=== PATIENT | female | born 1945 | race Caucasian/White ===

== ENCOUNTER 2020-04-20 21:30 | Inpatient (IN) | payer MEDICARE, BC ==
[~2020-04-20 21:30] MED LIST: Dexamethasone 20 MG/5 ML VIAL ONE; Glycopyrrolate 0.2 MG/ML 5 ML SYRINGE ONE; Heparin 10,000 UNITS/ 10 ML VIAL ONE; Iopamidol 370 76% 100 ML VIAL ONE; Ondansetron PF 4 MG/2 ML Vial ONE; PHENYLEPHRINE-NS 100 MCG/ML 10 ML SYRINGE ONE; PROPOFOL 200 MG/20 ML VIAL ONE; Rocuronium Bromide 10 MG/ML (10ML VIAL) ONE; Succinylcholine 200 MG/10 ml SYRINGE FS ONE
[2020-04-20] MEDS ORDERED: Midazolam HCl 2 mg/2 ml Vial ONE (21:54)
[2020-04-20] MEDS ORDERED: SUGAMMADEX SODIUM 200 MG/2 ML VIAL ONE (23:06)
[2020-04-21] MEDS: [UNRECOGNIZED DRUG - REMARK] FS SCH (01:45)
--- NOTE | 2020-04-21 02:26 | PRG ---
DATE OF SERVICE: 04/20/2020 Ms. Cortés is a 74-year-old female, who developed abrupt onset right hemiplegia and aphasia at dinner. She was brought to the [facility] ER, where she underwent a noncontrast head CT, which was negative for hemorrhage. A CT angiogram revealed occlusion of the distal ICA as well as the left middle cerebral arteries. She was administered IV tPA and transferred to [facility] for mechanical thrombectomy. Upon arrival, she was brought to the [facility], where she was placed under general anesthesia and underwent mechanical thrombectomy with buddhism of blood flow into the middle cerebral artery territory. The plan will now be ICU admission with additional medical management. Neurology and Hospitalist Service have been consulted. Job ID: [id number]
[2020-04-21 03:02] VITALS: BMI 27.1
--- NOTE | 2020-04-21 03:27 | PDOC.HHP ---
Hospitalist HPI Left-sided weakness History of Present Illness: This is a 74-year-old female with a history of atrial fibrillation hypertension, hyperlipidemia who is admitted on account of the stroke. She developed abrupt onset right hemiplegia and aphasia at home during the and thus EMS was activated. She was sent to [place] [facility] and evaluated. Initial CT of the head revealed no hemorrhage and a CTA was concerning for occlusion of the distal ICA and left middle cerebral arteries. TPA was initiated and after which she was transferred here for thrombectomy. Post thrombectomy she was transferred to CCU for monitoring. Hospitalist team was consulted for admission. Labs at presentation with WBC 6.7, Hb 10.5 and platelets 157. Potassium was low at 3.4, AST 76 ALT 117. Triglycerides were elevated at 571, cholesterol 212. Post thrombectomy patient was back to baseline at the time of my assessment in the ICU. She however does not remember clearly the events ofd Allergies/Adverse Reactions: Allergy/AdvReac Type Severity Reaction Status Date / Time No Known Allergies Allergy Unverified 04/21/20 00:44 Past History: Past medical history: A. fib, hypertension, hyperlipidemia Past surgical history: Appendectomy Family history: None of significance Social history: Occasional alcohol, no history of smoking or illicit drug use. History family Hospitalist HPI ROS Constitutional: reports: weakness. denies: fever, chills, sweats Eyes: denies: pain, vision change, conjunctivae inflammation, eyelid inflammation Cardiovascular: denies: chest pain, palpitations, orthopnea, paroxysmal noc. dyspnea Genitourinary: denies: dysuria, frequency, incontinence, hematuria Musculoskeletal: denies: neck pain, shoulder pain, arm pain Neurological: reports: change in speech. denies: weakness, numbness, incoordination Hospitalist Exam Vitals: Weight Weight 158 lb Most Recent Monitor Data Heart Rate from ECG 118 NIBP 141/117 NIBP BP-Mean 125 Respiration from ECG 24 SpO2 95 General Appearance: awake alert General - other findings: In no acute distress Eye: PERRL, anicteric sclera ENT: normocephalic atraumatic Neck: supple, symmetric, no JVD Heart: RRR, no murmur, no gallops, no rubs Respiratory: CTAB, no wheezes, no rales, no ronchi Gastrointestinal: soft, non-distended, tender to palpation (In right iliac fossa however resolved after micturition) Extremities: no cyanosis, no clubbing, no edema Neurological: cranial nerve grossly intact, no weakness, no focal deficits Psychiatric: normal affect, normal behavior, A&O x 3 Hospitalist H&P A/P Plan: This is a 74-year-old female with a history of A. fib, hypertension and hyperlipidemia who presents post thrombectomy after a left-sided ICA and MCA stroke. Stroke ICA and MCA she is status post thrombectomyno neurological deficits Had TPA We will monitor in ICU. PT evaluation in a.m. Echocardiogram Neurology consult Neurosurgery following. Normocytic anemia Hemoglobin at 10.5 Stable We will monitor Hypokalemia Potassium 3.4 Replace Check magnesium Hypertension BP stable Monitor Resume home medications once verified A. fib Patient goes into RVR at 120s We will try 5 mg IV metoprolol Cardiology evaluation the morning Monitor VT prophylaxisnone until post TPA
--- NOTE | 2020-04-21 03:54 | OP ---
DATE OF PROCEDURE: 04/20/2020 ENVIRONMENTAL ADVISOR: No shop assistant. INDICATION: Large vessel occlusion of distal ICA and the left middle cerebral artery. PROCEDURE PERFORMED: Mechanical thrombectomy. ANESTHESIA: General. DESCRIPTION OF PROCEDURE: The patient was brought into the operating room and placed under general anesthesia. She was placed on the superintendent geophysical laboratory table in a supine position. Both groins were prepped and draped in the usual sterile fashion. A 5-Kyrgyz micropuncture set was used to gain access to the right common femoral artery. Using a Seldinger technique, the needle was removed and an 8-Kyrgyz sheath was placed. An 8-Kyrgyz Concentric guide catheter was passed over a long Club Venit diagnostic catheter, which was passed over a Surphace guidewire and advanced into the left internal carotid artery, where an AP and lateral angiogram was performed. After confirming occlusion of the left middle cerebral artery and distal internal carotid artery, Trevo mechanical thrombectomy device was deployed for a total of three times. There was complete roman catholic of blood flow with starting TC store 0 and an ending TC score of 3. All catheters were then removed. The sheath was sewn in place due to recent administration of tPA. The procedure came to an end without any known complication. IMPRESSION: The patient underwent successful mechanical thrombectomy with complete roman catholic of blood flow into the left middle cerebral artery and distal left internal carotid artery. Job ID: [id number]
[2020-04-21] MEDS ORDERED: Metoprolol Tartrate 5 MG/5 ML VIAL IVP SCH (05:45)
--- NOTE | 2020-04-21 08:51 | RAD ---
EXAM: XR Abdomen 1 View/KUB PROVIDED CLINICAL HISTORY: Abdominal distention post TPA COMPARISON: None FINDINGS: There is prominent distention of the urinary bladder which is filled with contrast likely due to rece nt contrasted exam. Surgical clips overlie the right lower quadrant/upper pelvis. Vascular calcifications are seen in the abdominal aorta and iliac arteries. Bowel gas pattern is nonspecific. Osseous structures have a normal appearance. IMPRESSION: 1. Prominent distention of the urinary bladder which is filled with contrast. 2. Nonspecific bowel gas pattern.
--- NOTE | 2020-04-21 09:12 | PDOC.HOSPP ---
- Subjective Encounter Date: 04/21/20 Encounter Time: 09:11 Subjective: Ms. Cortés was seen today in follow-up of CVA post tPa, and mechanical thrombectomy. She says she feels fine. She does not remember much of the events which led to her hospitalization other than she was standing in a chair on her porch, and fell. - Objective Vital Signs & Weight: Vital Signs (12 hours) Pulse Ox 04/21/20 07:56 93 L 04/21/20 07:08 96 04/21/20 05:16 96 Weight Weight 158 lb Most Recent Monitor Data Heart Rate from ECG 113 NIBP 133/62 NIBP BP-Mean 85 Respiration from ECG 23 SpO2 93 I&O: 04/20/20 04/21/20 04/22/20 06:59 06:59 06:59 Intake Total 0 Output Total 1380 0 Balance -1380 0 Hospitalist ROS - Medication Medications: Active Medications Generic Name Dose Route Start Last Admin Trade Name Freq PRN Reason Stop Dose Admin Miscellaneous Information 1 each 04/21/20 01:45 04/21/20 01:45 No Anticoags FS 04/22/20 22:00 1 each NOW [facility] Administration Hospitalist Exam Vitals: Vital Signs (12 hours) Pulse Ox 04/21/20 07:56 93 L 04/21/20 07:08 96 04/21/20 05:16 96 Weight Weight 158 lb Most Recent Monitor Data Heart Rate from ECG 113 NIBP 133/62 NIBP BP-Mean 85 Respiration from ECG 23 SpO2 93 General Appearance: NAD, awake alert Eye: PERRL, anicteric sclera Heart: no murmur, no gallops, irregular (and rapid) Respiratory: CTAB, no wheezes, no rales, no ronchi, normal chest expansion, no tachypnea, normal percussion Gastrointestinal: soft, non-tender, non-distended, normal bowel sounds, no palpable masses, no hepatomegaly Extremities: no cyanosis, no edema Neurological: no focal deficits Musculoskeletal: no muscle wasting Psychiatric: normal affect, A&O x 3 Hosp A/P (1) Acute CVA (cerebrovascular accident) Code(s): I63.9 - CEREBRAL INFARCTION, UNSPECIFIED Status: Acute (2) Atrial fibrillation Code(s): I48.91 - UNSPECIFIED ATRIAL FIBRILLATION Status: Chronic (3) Hypertension Code(s): I10 - ESSENTIAL (PRIMARY) HYPERTENSION Status: Chronic - Plan * Acute Left MCA CVA. She is s/p tPa, as well as mechanical thrombectomy. She currently has no obvious residual symptoms. * Continue to monitor in the ICU under the post tPa protocol * AFIB- she has had ablation in the past, was not on anticoagulation, other than aspirin. Her heart rate is fast- will try a dose of Digoxin IV, and await further recommendations from Cardiology * Consult Cardiology * Echo is being done * Neurology Evaluation * HTN- blood pressure is currently controlled
[2020-04-21] MEDS ORDERED: Digoxin 0.5 MG/2 ML AMP SLOW IVP SCH (09:30)
[2020-04-21] MEDS ORDERED: Potassium Chloride 20 MEQ in Premix Bag 1 BAG IVPB SCH (10:00)
[2020-04-21] MEDS: Diltiazem 125 MG in Sodium Chloride 0.9% 100 ML IVPB SCH (12:33)
--- NOTE | 2020-04-21 13:04 | CON ---
DATE OF CONSULTATION: 04/21/2020 REASON FOR CONSULTATION: AFib with RVR. PRIMARY MOLD BUNCH TRIMMER: Wilberto Yanes MD HISTORY OF PRESENT ILLNESS: Ms. Cortés is a very pleasant 74-year-old white female, who came to the hospital for stroke-like symptoms. She received tPA and there was no resolution of symptoms, so she was taken emergently to the catheterization lab by Dr. Duong, who found an occluded internal carotid and middle cerebral artery. He did manual thrombectomy of these vessels, successfully clearing them and restoring flow. On my evaluation, Ms. Cortés is completely neurologically intact and back to normal, which is impressive how well she is doing right now. Cardiology has been consulted as she has been in AFib, currently in AFib with RVR, heart rate in the 110s to 130s. She has a history of atrial fibrillation. She had an ablation back in 2019. She was on anticoagulation briefly and then since she has had her ablation, she has not been on any anticoagulation. She established with our practice with Dr. Yanes just about a month or 2 ago, and she was scheduled to get evaluation of her lower extremities for symptomatic peripheral vascular disease. This does not happen as the patient developed COVID back in February and her procedure had to be postponed. PAST MEDICAL HISTORY: 1. Hyperlipidemia. 2. Hypertension. 3. History of hepatitis. 4. Peripheral vascular disease with stenting in the past. 5. History of paroxysmal atrial fibrillation, status post ablation in 2019. 6. Anxiety and depression. 7. Osteoarthritis. OUTPATIENT MEDICATIONS: 1. Atenolol/chlorthalidone 50/25 mg half a tablet every day. 2. Carbinoxamine maleate 4 mg daily. 3. Aspirin 81 a day. 4. Tolterodine daily. 5. Calcium with vitamin D. 6. Losartan 100 mg a day. 7. Pravastatin 80 mg a day. 8. Sertraline 50 mg at bedtime. ALLERGIES: PENICILLIN GIVES RASH. PAST SURGICAL HISTORY: 1. Tubal ligation. 2. Bladder tack. 3. Stenting on bilateral lower extremities. 4. AFib ablation in 2019. 5. Bilateral cataract surgeries. FAMILY HISTORY: Noncontributory. SOCIAL HISTORY: Social alcohol use. No tobacco or drugs. She moved from the [facility] to this area since November of this year. REVIEW OF SYSTEMS: A 12-point review of systems was done and was found to be negative other than stated in the history of present illness. PHYSICAL EXAMINATION: VITAL SIGNS: Temperature 97.2, pulse 122, respiratory rate 20, saturating 97% on 2 L nasal cannula, blood pressure 144/74. GENERAL: Awake, alert, oriented x3. In no distress. HEENT: Normocephalic, atraumatic. NECK: Supple. LUNGS: Clear. CARDIOVASCULAR: Irregularly irregular. Heart rate in the 120s. ABDOMEN: Soft. Positive bowel sounds. EXTREMITIES: No edema. SKIN: Warm and dry. LABORATORY DATA: Laboratory work was reviewed. White count of 6, hemoglobin of 10, hematocrit 31, platelet count of 172. Coags with INR 1.1. Chemistries were unremarkable except for potassium is 3.4, AST 76, ALT 112. COVID-19 PCR serologies were not detected. EKG was reviewed. Telemetry was reviewed. ASSESSMENT AND PLAN: 1. Atrial fibrillation with RVR. 2. Acute CVA. 3. Status post tPA yesterday at midnight. 4. Status post manual thrombectomy of the left middle cerebral artery and left internal carotid artery. 5. History of hypertension. 6. History of peripheral vascular disease. PLAN: 1. We will try to rate control her at this time. We will try to stay away from amiodarone unless we absolutely need to for rate control, but my concern is that at this time without doing a BENEDICTO, I do not know if there is still thrombus in the left atrium that could continue to dislodge converted either chemically or electrically. We will try to do rate control. She already got digoxin and this did not really do much for her heart rate. We spoke with Dr. Duong, and as far as how high would he prefer to have her blood pressure with permissive hypertension after strokes, he tells me that since she has been revascularized that as long as we do not have low blood pressures, we should be okay. With her blood pressure currently in the 140s, we are going to start her on diltiazem drip to try to slow her down lenient rate control less than 110. 2. We will hold any diltiazem or any blood pressure medications if her blood pressure gets anywhere below 100. 3. She will need long-term anticoagulation. She received tPA less than 24 hours ago, so that should be started tomorrow morning. 4. Her peripheral vascular disease will be addressed in the future once she is over the current situation. Thank you for letting us to participate in care of your patient. Dr. Yanes, her primary icing maker, will follow up in the morning. Job ID: [id number]
--- NOTE | 2020-04-21 13:34 | CON ---
NEUROLOGY CONSULTATION DATE OF CONSULTATION: 04/21/2020 REASON FOR CONSULTATION: Right sided weakness and aphasia Acute CVA status post tPA and status post mechanical thrombectomy. HISTORY OF PRESENT ILLNESS: Ms. Yael Cortés is a 74-year-old female with medical history significant for atrial fibrillation, hypertension, and hyperlipidemia, presented to the emergency room because of acute onset left-sided weakness with the abrupt onset of right-sided hemiplegia and aphasia at home. The family called the EMS and she was sent to the [place] ER where she was evaluated with head CT, which did not reveal any hemorrhage. CTA of the head showed occlusion of the distal ICA and the left middle cerebral artery. TPA was initiated, after which she was transferred here for mechanical thrombectomy. Post thrombectomy, she was admitted to the CCU for monitoring and management. Neurology was consulted for continued management. The patient denies nausea, vomiting, headache, chest pain, abdominal pain, recent illness, or recent exposure to COVID-19. She also denies vertigo, dizziness, double vision, or loss of vision, but she does not remember the events after a stroke, so there is a memory lapse associated with the situation. ALLERGIES: NO KNOWN DRUG ALLERGIES. PAST MEDICAL HISTORY: 1. Atrial fibrillation. 2. Hypertension. 3. Hyperlipidemia. PAST SURGICAL HISTORY: Appendectomy. FAMILY HISTORY: None. SOCIAL HISTORY: Occasional alcohol. Denies illegal drug use. REVIEW OF SYSTEMS: All systems reviewed and were negative except the pertinent positives and negatives mentioned in the HPI. Vital Signs & Weight: Vital Signs (12 hours) Pulse Ox 04/21/20 07:56 93 L 04/21/20 07:08 96 04/21/20 05:16 96 Weight Weight 158 lb Most Recent Monitor Data Heart Rate from ECG 113 NIBP 133/62 NIBP BP-Mean 85 Respiration from ECG 23 SpO2 93 I&O: 04/20/20 04/21/20 04/22/20 06:59 06:59 06:59 Intake Total 0 Output Total 1380 0 Balance -1380 0 Active Medications Generic Name Dose Route Start Last Admin Trade Name Freq PRN Reason Stop Dose Admin Miscellaneous Information 1 each 04/21/20 01:45 04/21/20 01:45 No Anticoags FS 04/22/20 22:00 1 each NOW [facility] Administration PHYSICAL EXAMINATION: General Appearance: NAD, awake alert Eye: PERRL, anicteric sclera Heart: no murmur, no gallops, irregular (and rapid) Respiratory: CTAB, no wheezes, no rales, no ronchi, normal chest expansion, no tachypnea, normal percussion Gastrointestinal: soft, non-tender, non-distended, normal bowel sounds, no palpable masses, no hepatomegaly Extremities: no cyanosis, no edema Neurological: Mental status; the patient is alert and oriented to person, place, and time. Recent and remote memory intact. Fund of knowledge appropriate. Speech is clear. Cranial nerves 2 through 12 intact. Motor; muscle tone and bulk are normal. Strength 5/5 bilaterally. Sensory intact. Cerebellar, finger-nose testing intact. Gait deferred due to patient's safety reasons. DATA REVIEWED: I reviewed the labs which is unremarkable. Head CT did not reveal acute intracranial pathology. CTA of the head showed left ICA and left middle cerebral artery occlusion. ASSESSMENT AND PLAN: (1) Acute CVA (cerebrovascular accident) Code(s): I63.9 - CEREBRAL INFARCTION, UNSPECIFIED Status: Acute (2) Atrial fibrillation Code(s): I48.91 - UNSPECIFIED ATRIAL FIBRILLATION Status: Chronic (3) Hypertension Code(s): I10 - ESSENTIAL (PRIMARY) HYPERTENSION Status: Chronic Ms. Yael Cortés is a 74-year-old female with medical history significant for atrial fibrillation, hypertension, and hyperlipidemia, presented with acute onset focal deficit in the setting of hypertensive emergency. She does have history of hypertension, hyperlipidemia, and atrial fibrillation. Head CT reviewed, which was negative for acute intracranial pathology. CTA of the head showed ICA and middle cerebral artery occlusion. She is status post tPA and status post mechanical thrombectomy and has been doing well. Her focal neurological deficits have been resolved. Continue permissive control of blood pressure and strict control of blood glucose. Continue telemetry to monitor arrhythmia. She does have history of atrial fibrillation. Consider Cardiology input. 2D echo to evaluate for left ventricular ejection fraction. The patient is status post mechanical thrombectomy and Neurosurgery is on board. Continue n.p.o. until cleared by Speech. DVT prophylaxis with SCDs. Continue medical management per primary team. Hold antiplatelets and anticoagulation for the next 24 hours since the patient received tPA and need head CT 24 hours post tPA to monitor for bleed. PT/OT/Speech. We will continue to follow. Plan discussed in detail with the patient with the patient and the family member and also the nursing staff. Thank you for the consult. Job ID: [id number] MTDD
--- NOTE | 2020-04-21 13:59 | PDOC.EEG ---
Neurology EEG Report - Report Report: This EEG was performed using 24 channel [employer] video EEG machine with 24 disc sergei ctrodes. This was an extended 2 hours 4 minutes of inpatient video EEG recording. Digital analysis of the EEG was done for spike and seizure detection which revealed no abnormalities. Background: The posterior background rhythm is 8 to 9 Hz. Minimal reactivity seen with eye opening and closure Hyperventilation: Not performed. Photic Stimulation: No significant response. Sleep: No stage change is observed. EEG Diagnosis: Occasional irregular theta activity seen during the recording Clinical Interpretation: This EEG is consistent with mild generalized nonspecific cerebral dysfunction. No electrographic seizures captured during the recording.
[2020-04-22] MEDS: [UNRECOGNIZED DRUG - REMARK] FS SCH (02:00)
[2020-04-22 04:01] LABS: #Lymphocytes 2.7 thou/uL (1.20-3.40); #Monocytes 0.6 thou/uL (0.11-0.59); %Basophils 0.4 % (0.0-1.0); %Eosinophils 0.1 % (0.0-10.0); %Lymphocytes 28.9 % (21.0-51.0); %Monocytes 5.9 % (0.0-10.0); %Neutrophils 64.7 % (42.0-75.0); Hemoglobin 10.9 g/dL (12.0-16.0); Mean Corpuscular HGB CONC 32.5 g/dL (32.0-36.0); Mean Corpuscular Hemoglobin 30.5 pg (27.0-31.0); Mean Corpuscular Volume 93.8 fL (78.0-98.0); Mean Platelet Volume 6.5 fL (7.4-10.4); Platelet Count 185 thou/uL (130-400); RBC Distribution Width 13.1 % (11.5-14.5); Red Blood Cell (RBC) Count 3.59 mill/uL (4.20-5.40); White Blood Cell (WBC) Count 9.3 thou/uL (4.8-10.8)
[2020-04-22 04:08] LABS: Hemoglobin A1c 5.7 % (4.0-6.0)
[2020-04-22 04:21] LABS: Anion Gap 12 mmol/L (10-20); BUN (Urea Nitrogen) 14 mg/dL (9.8-20.1); Calc. Creatinine Clearance 83 mL/min (70-130); Calcium 8.2 mg/dL (7.8-10.44); Carbon Dioxide 21 mmol/L (23-31); Cardiac Risk 5.3 (Less than 4.5); Chloride 110 mmol/L (98-107); Cholesterol 159 mg/dl (< 200 Desired); Glucose 113 mg/dL (83-110); HDL Cholesterol 30 mg/dL (>60 Neg Risk); LDL Cholesterol, Calculated 97 mg/dL; Magnesium 1.6 mg/dL (1.6-2.6); Potassium 3.4 mmol/L (3.5-5.1); Sodium 140 mmol/L (136-145); Triglycerides 162 mg/dL (Less than 150)
[2020-04-22] MEDS: Diltiazem 125 MG in Sodium Chloride 0.9% 100 ML IVPB SCH (07:23)
--- NOTE | 2020-04-22 07:41 | CT ---
PRELIMINARY REPORT/[facility]/EMERGENCY AFTER HOURS PROCEDURE EXAM: CT Head Without Intravenous Contrast. CLINICAL HISTORY: F/U TPA/EMBOLECTOMY TECHNIQUE: Axial computed tomography images of the head/brain without intravenous contrast. COMPARISON: CT\SR - CT BRAIN WO CON - 04/20/2020 08:02 PM ADVISORY SOFTWARE ENGINEER FINDINGS: BRAIN: No acute intraparenchymal hemorrhage. No mass lesion. No CT evidence for acute territorial infarct. N o midline shift or extra-axial collection. Hypodensity of the white matter is nonspecific but likely represents chronic microvascular ischemic d isease. VENTRICLES: No hydrocephalus. Volume loss. ORBITS: The globes are intact. SINUSES AND MASTOIDS: The paranasal sinuses and mastoid air cells are clear. SOFT TISSUES: No significant facial or scalp soft tissue swelling evident. No radiopaque foreign body is seen. BONES: No acute skull fracture. IMPRESSION: Chronic parenchymal changes. No acute intracranial abnormality. ELECTRONICALLY SIGNED BY: Merle Lynn MD Apr 22, 2020 5:05:07 AM ADVISORY SOFTWARE ENGINEER This report is intended for review by the ordering physician only, in accordance of law. If you recei ve this report in error, please call [facility] at [phone]. FINAL REPORT Final interpretation Head CT without contrast: 04/22/2020 COMPARISON: 04/20/2020. HISTORY: Ischemic CVA, reevaluate brain parenchyma. FINDINGS: The imaged paranasal sinuses and mastoid air cells are well-aerated. There is no displaced calvarial fracture. No intracranial hemorrhage, midline shift, mass effect, or ventricular enlargement. Mild diffuse cerebral volume loss. IMPRESSION: No intracranial hemorrhage. Code QA Transcribed Date/Time: 04/22/2020 7:46 AM
[2020-04-22] MEDS ORDERED: Potassium Chloride 20 MEQ TAB PO SCH (07:45)
[2020-04-22] MEDS ORDERED: Diltiazem 125 MG in Sodium Chloride 0.9% 100 ML IVPB SCH (08:47)
[2020-04-22] MEDS ORDERED: Atenolol 25 MG TAB PO SCH (09:00)
[2020-04-22] MEDS: Ezetimibe 10 MG TAB PO SCH (11:23)
--- NOTE | 2020-04-22 13:07 | PDOC.NEUPN ---
- Subjective Encounter Date: 04/22/20 Subjective: No new complaints. - Objective Vital Signs & Weight: Vital Signs (12 hours) Temp Pulse Pulse Pulse BP BP BP 04/22/20 11:22 81 127/54 L 04/22/20 09:45 76 80 129/59 L 131/74 04/22/20 08:37 04/22/20 08:00 04/22/20 07:00 98.1 F Pulse Ox Pulse Ox Pulse Ox 04/22/20 11:22 04/22/20 09:45 94 L 95 04/22/20 08:37 97 04/22/20 08:00 92 L 04/22/20 07:00 Weight Weight 158 lb Most Recent Monitor Data Heart Rate from ECG 68 NIBP 111/58 NIBP BP-Mean 75 Respiration from ECG 17 SpO2 93 I&O: 04/21/20 04/22/20 04/23/20 06:59 06:59 06:59 Intake Total 324.2 540 Output Total 1380 1350 1200 Balance -1380 -1025.8 -660 Result Diagrams: 04/22/20 03:44 04/22/20 03:44 Radiology Reviewed by me: Yes EKG Reviewed by me: Yes ROS - Review of Systems Constitutional: denies: fever, chills, sweats, weakness, malaise, other Eyes: denies: pain, vision change, conjunctivae inflammation, eyelid inflammatio n, redness, other ENT: denies: ear pain, ear discharge, nose pain, nose discharge, nose congestion, mouth pain, mouth swelling, throat pain, throat swelling, other Respiratory: denies: cough, dry, shortness of breath, hemoptysis, SOB with excertion, pleuritic pain, sputum, wheezing, other Gastrointestinal: denies: nausea, vomiting, abdominal pain, diarrhea, constipation, melena, hematochezia, other Genitourinary: denies: dysuria, frequency, incontinence, hematuria, retention, other Musculoskeletal: denies: neck pain, shoulder pain, arm pain, back pain, hand pain, leg pain, foot pain, other Skin: denies: rash, lesions, alize, bruising, other Neurological: reports: weakness - Medication Medications: Active Medications Generic Name Dose Route Start Last Admin Trade Name Freq PRN Reason Stop Dose Admin Atenolol 25 mg 04/22/20 09:00 04/22/20 11:22 Atenolol 25 Mg Tab PO 25 mg DAILY ROQUE Administration Ezetimibe 10 mg 04/22/20 09:00 04/22/20 11:23 Ezetimibe 10 Mg Tab PO 10 mg DAILY ROQUE Administration Miscellaneous Information 1 each 04/21/20 01:45 04/22/20 02:00 No Anticoags FS 04/22/20 22:00 1 each NOW ROQUE Administration - Exam General Appearance: awake alert Eye: PERRL ENT: normocephalic atraumatic Neck: supple Respiratory: CTAB Cardiovascular: irregular Gastrointestinal: soft Extremities: no cyanosis Skin: normal turgor Neurological: no focal deficits, no new deficit Musculoskeletal: normal tone, no muscle wasting PSYCH: normal affect, normal behavior, A&O x 3, oriented to person, oriented to place, oriented to time Results - Labs Result Diagrams: 04/22/20 03:44 04/22/20 03:44 Lab results: WBC 9.3 thou/uL (4.8-10.8) 04/22/20 03:44 Hgb 10.9 g/dL (12.0-16.0) L 04/22/20 03:44 Hct 33.7 % (36.0-47.0) L 04/22/20 03:44 MCV 93.8 fL (78.0-98.0) 04/22/20 03:44 Plt Count 185 thou/uL (130-400) 04/22/20 03:44 Neutrophils % 64.7 % (42.0-75.0) 04/22/20 03:44 Sodium 140 mmol/L (136-145) 04/22/20 03:44 Potassium 3.4 mmol/L (3.5-5.1) L 04/22/20 03:44 Chloride 110 mmol/L (98-107) H 04/22/20 03:44 Carbon Dioxide 21 mmol/L (23-31) L 04/22/20 03:44 BUN 14 mg/dL (9.8-20.1) 04/22/20 03:44 Creatinine 0.67 mg/dL (0.6-1.1) 04/22/20 03:44 Glucose 113 mg/dL (83-110) H 03/01/21 03:44 Calcium 8.2 mg/dL (7.8-10.44) 04/22/20 03:44 - Radiology Interpretation CT scan - head Additional Comment: MRI of the brain was negative for acute intracranial pathology. PN A/P (1) Acute CVA (cerebrovascular accident) Code(s): I63.9 - CEREBRAL INFARCTION, UNSPECIFIED Status: Acute (2) Atrial fibrillation Code(s): I48.91 - UNSPECIFIED ATRIAL FIBRILLATION Status: Chronic (3) Hypertension Code(s): I10 - ESSENTIAL (PRIMARY) HYPERTENSION Status: Chronic - Plan Daily Plan: plan discussed w/ family, PT/OT, speech therapy, DVT proph w/SCDs Mr. Cortés is a 74-year-old female who presented with strokelike symptoms and is s/p TPA and mechanical thrombectomy with marked resolution of her neurological deficits. Head CT 24 hours post TPA is negative for bleed. CTA of the head showed occlusion of the left middle cerebral and distal internal carotid arteries. Mechanical thrombectomy was performed by Dr. Duong which resulted in normal blood flow 2 D Echo completed. Results noted. EEG reviewed and was negative for seizure activity. Start aspirin and high intensity statin for secondary stroke prevention. Permissive control of blood pressure at this time. Strict control of blood glucose. Check hemoglobin A1c, fasting lipid panel and TSH. Continue telemetry. Patient has history of atrial fibrillation and cardiology is on board.Need care home anticoagulation. Neurochecks every 4 hours. Continue home medications. Continue medical management per primary team and cardiology. PT/OT/speech DVT prophylaxis with SCDs. Plan discussed with the patient and the family.
--- NOTE | 2020-04-22 16:55 | PDOC.HOSPP ---
- Subjective Encounter Date: 04/22/20 Encounter Time: 16:52 Subjective: Ms. Cortés was seen today in follow-up of acute CVA s/p tPa. She says she does no have any complaints, and her symptoms have completely resolved. - Objective Vital Signs & Weight: Vital Signs (12 hours) Temp Pulse Pulse Pulse BP BP BP 04/22/20 11:22 81 127/54 L 04/22/20 09:45 76 80 129/59 L 131/74 04/22/20 08:37 04/22/20 08:00 04/22/20 07:00 98.1 F Pulse Ox Pulse Ox Pulse Ox 04/22/20 11:22 04/22/20 09:45 94 L 95 04/22/20 08:37 97 04/22/20 08:00 92 L 04/22/20 07:00 Weight Weight 158 lb Most Recent Monitor Data Heart Rate from ECG 79 NIBP 101/72 NIBP BP-Mean 81 Respiration from ECG 26 SpO2 96 I&O: 04/21/20 04/22/20 04/23/20 06:59 06:59 06:59 Intake Total 324.2 660 Output Total 1380 1350 1200 Balance -1380 -1025.8 -540 Result Diagrams: 04/22/20 03:44 04/22/20 03:44 Hospitalist ROS - Medication Medications: Active Medications Generic Name Dose Route Start Last Admin Trade Name Freq PRN Reason Stop Dose Admin Atenolol 25 mg 04/22/20 09:00 04/22/20 11:22 Atenolol 25 Mg Tab PO 25 mg DAILY ROQUE Administration Ezetimibe 10 mg 04/22/20 09:00 04/22/20 11:23 Ezetimibe 10 Mg Tab PO 10 mg DAILY [facility] Administration Miscellaneous Information 1 each 04/21/20 01:45 04/22/20 02:00 No Anticoags FS 04/22/20 22:00 1 each NOW [facility] Administration Hospitalist Exam Vitals: Vital Signs (12 hours) Temp Pulse Pulse Pulse BP BP BP 04/22/20 11:22 81 127/54 L 04/22/20 09:45 76 80 129/59 L 131/74 04/22/20 08:37 04/22/20 08:00 04/22/20 07:00 98.1 F Pulse Ox Pulse Ox Pulse Ox 04/22/20 11:22 04/22/20 09:45 94 L 95 04/22/20 08:37 97 04/22/20 08:00 92 L 04/22/20 07:00 Weight Weight 158 lb Most Recent Monitor Data Heart Rate from ECG 79 NIBP 101/72 NIBP BP-Mean 81 Respiration from ECG 26 SpO2 96 General Appearance: NAD, awake alert Eye: PERRL, anicteric sclera Heart: RRR, no murmur, no gallops, no rubs, normal peripheral pulses Respiratory: CTAB, no wheezes, no rales, no ronchi, normal chest expansion, no tachypnea, normal percussion Gastrointestinal: soft, non-tender, non-distended, normal bowel sounds, no palpable masses, no hepatomegaly Extremities: no cyanosis, no edema Neurological: no focal deficits Psychiatric: normal affect Hosp A/P (1) Acute CVA (cerebrovascular accident) Code(s): I63.9 - CEREBRAL INFARCTION, UNSPECIFIED Status: Acute (2) Atrial fibrillation Code(s): I48.91 - UNSPECIFIED ATRIAL FIBRILLATION Status: Chronic (3) Hypertension Code(s): I10 - ESSENTIAL (PRIMARY) HYPERTENSION Status: Chronic - Plan * Acute Left MCA CVA. She is s/p tPa, as well as mechanical thrombectomy. She currently has no residual symptoms. * Continue to monitor in the ICU under the post tPa protocol * Continue aspiin and atorvastatin, and will add Vacepa * AFIB- her heart rate is controlled. She has been started on Hal Yanes * HTN- will reconcile and re-start her scott medications. * Echo results noted * Neurology and Cardiology evaluations appreciated * Home tomorrow
[2020-04-22] MEDS: Atorvastatin Calcium 40 MG TAB PO SCH (21:42)
[2020-04-22] MEDS: Apixaban 5 MG TAB PO SCH (21:43)
[2020-04-22] MEDS: Trospium 20 MG TAB PO SCH (21:43)
[2020-04-22] MEDS: Icosapent Ethyl 1 GM CAPSULE PO SCH (21:44)
[2020-04-22] MEDS: Acetaminophen 325 MG TAB PO PRN (22:07)
[2020-04-23] MEDS ORDERED: Lorazepam 2 MG/ML VIAL SLOW IVP SCH (02:15)
[2020-04-23] MEDS: Acetaminophen 325 MG TAB PO PRN ×2 (04:12→10:24)
[2020-04-23 04:50] LABS: #Eosinphils 0.1 thou/uL (0.0-0.7); #Lymphocytes 2.8 thou/uL (1.20-3.40); #Monocytes 0.7 thou/uL (0.11-0.59); #Neutrophils 6.7 thou/uL (1.40-6.50); %Basophils 0.4 % (0.0-1.0); %Eosinophils 1.3 % (0.0-10.0); %Lymphocytes 26.9 % (21.0-51.0); %Neutrophils 64.3 % (42.0-75.0); Hemoglobin 11.9 g/dL (12.0-16.0); Mean Corpuscular Hemoglobin 31.2 pg (27.0-31.0); Mean Corpuscular Volume 94.5 fL (78.0-98.0); Mean Platelet Volume 6.7 fL (7.4-10.4); Platelet Count 173 thou/uL (130-400); Red Blood Cell (RBC) Count 3.84 mill/uL (4.20-5.40); White Blood Cell (WBC) Count 10.4 thou/uL (4.8-10.8)
[2020-04-23 05:13] LABS: Anion Gap 12 mmol/L (10-20); BUN (Urea Nitrogen) 14 mg/dL (9.8-20.1); Calc. Creatinine Clearance 75 mL/min (70-130); Calcium 8.8 mg/dL (7.8-10.44); Carbon Dioxide 23 mmol/L (23-31); Chloride 109 mmol/L (98-107); Glucose 126 mg/dL (83-110); Potassium 3.9 mmol/L (3.5-5.1); Sodium 140 mmol/L (136-145)
[2020-04-23] MEDS ORDERED: Benzonatate 100 MG CAP PO PRN (07:41)
[2020-04-23] MEDS ORDERED: Loperamide HCl 2 MG CAP PO PRN (07:41)
[2020-04-23] MEDS ORDERED: Zolpidem Tartrate 5 MG TAB PO PRN (07:41)
[2020-04-23] MEDS ORDERED: Sodium Chloride 0.65% Nasal 44 ML BOT EA NARE PRN (07:41)
[2020-04-23] MEDS ORDERED: GUAIFENESIN SF SOLN 200 MG/10 ML UDCUP PO PRN (07:41)
[2020-04-23] MEDS ORDERED: Cepastat Lozenges 1 LOZ PO PRN (07:41)
[2020-04-23] MEDS ORDERED: Senokot S 8.6-50 MG TAB PO PRN (07:41)
[2020-04-23] MEDS ORDERED: hydrALAZINE 20 MG/ML VIAL SLOW IVP PRN (07:41)
[2020-04-23] MEDS ORDERED: Calcium Carbonate 500 MG ChewTAB PO PRN (07:41)
[2020-04-23] MEDS ORDERED: Ondansetron ODT 4 MG TAB PO PRN (07:41)
[2020-04-23] MEDS ORDERED: Bisacodyl 5 MG TAB PO PRN (07:41)
[2020-04-23] MEDS ORDERED: Ondansetron PF 4 MG/2 ML Vial IVP PRN (07:41)
[2020-04-23] MEDS ORDERED: Loratadine 10 MG TAB PO PRN (07:41)
[2020-04-23 08:08] LABS: ALT (SGPT) 88 U/L (8-55); AST (SGOT) 38 U/L (5-34); Albumin 3.9 g/dL (3.4-4.8); Alkaline Phosphatase 70 U/L (40-110); Bilirubin, Direct 0.3 mg/dL (0.1-0.3); Bilirubin, Total 0.7 mg/dL (0.2-1.2)
[2020-04-23] MEDS: Trospium 20 MG TAB PO SCH ×2 (08:12→20:54)
[2020-04-23] MEDS: Apixaban 5 MG TAB PO SCH ×2 (08:12→20:54)
[2020-04-23] MEDS: Atenolol 25 MG TAB PO SCH (08:12)
[2020-04-23] MEDS: Ezetimibe 10 MG TAB PO SCH (08:12)
[2020-04-23] MEDS ORDERED: CARBINOXAMINE MALEATE 4 MG PO SCH (09:00)
--- NOTE | 2020-04-23 09:19 | MRI ---
MRI of thebrain: 04/23/2020 COMPARISON:04/22/[address] HISTORY:Ischemic stroke TECHNIQUE: Multiplanar multisequence MR imaging of thebrain without contrast Findings:Arterial flow voids at the axial level of the skull base appear grossly unremarkable on the axial T2 imaging. However, the internal carotid artery distally on the left appears abnormal on prior CT angiogram, which is a better study for evaluation of the arterial structures. A follow-up CT angiogram may be beneficial if clinically warranted. Regional bone marrow signal intensity grossly unremarkable on the sagittal T1 sequence. There is significant degenerative change at the atlantoaxia l interspace. The axial gradient echo imaging demonstrates no evidence for intracranial hemorrhage. The diffusion weighted imaging demonstrates a single subcentimeter focus of restricted diffusion cons istent with acute infarction in the posterior aspect of the insula on the left along the medial margin of the left sylvian fissure measuring approximately 2 mm (axial diffusion image 38). In additi on, there is a subcortical focus of restricted diffusion consistent with acute infarction measuring 7 mm within the left posterior lateral parietal lobe (diffusion axial image 42). IMPRESSION:2 subcentimeter foci of restricted diffusion on the left consistent with punctate foci of acute infarction.
[2020-04-23] MEDS: Chlorthalidone 25 MG TAB PO SCH (09:27)
[2020-04-23] MEDS: Icosapent Ethyl 1 GM CAPSULE PO SCH ×2 (09:28→20:55)
--- NOTE | 2020-04-23 10:27 | PDOC.HOSPP ---
- Subjective Encounter Date: 04/23/20 Encounter Time: 08:00 Subjective: Patient seen and examined. No new complaints. No overnight events - Objective Vital Signs & Weight: Vital Signs (12 hours) Temp Pulse Resp BP Pulse Ox 04/23/20 07:09 98.2 F 97 18 121/68 97 04/23/20 05:37 90 04/23/20 03:45 98.6 F 108 H 20 145/76 H 98 04/22/20 23:25 99 F 99 22 H 137/73 95 Weight Weight 158 lb Most Recent Monitor Data Heart Rate from ECG 79 NIBP 101/72 NIBP BP-Mean 81 Respiration from ECG 26 SpO2 96 I&O: 04/22/20 04/23/20 04/24/20 06:59 06:59 06:59 Intake Total 324.2 897 Output Total 1350 1200 Balance -1025.8 -303 Result Diagrams: 04/23/20 04:39 04/23/20 04:39 Radiology Reviewed by me: Yes EKG Reviewed by me: Yes Hospitalist ROS - Review of Systems Eyes: denies: pain, vision change, conjunctivae inflammation, eyelid inflammation, redness, other ENT: denies: ear pain, ear discharge, nose pain, nose discharge, nose congestion, mouth pain, mouth swelling, throat pain, throat swelling, other Respiratory: denies: cough, dry, shortness of breath, hemoptysis, SOB with excertion, pleuritic pain, sputum, wheezing, other Cardiovascular: denies: chest pain, palpitations, orthopnea, paroxysmal noc. dyspnea, edema, light headedness, other Gastrointestinal: denies: nausea, vomiting, abdominal pain, diarrhea, constipation, melena, hematochezia, other Genitourinary: denies: dysuria, frequency, incontinence, hematuria, retention, other Musculoskeletal: reports: back pain. denies: neck pain, shoulder pain, arm pain, hand pain, leg pain, foot pain, other - Medication Medications: Active Medications Generic Name Dose Route Start Last Admin Trade Name Freq PRN Reason Stop Dose Admin Acetaminophen 650 mg 04/22/20 22:01 04/23/20 04:12 Acetaminophen 325 Mg Tab PO 650 mg Q6H PRN Administration Headache/Fever or Pain Apixaban 5 mg 04/22/20 21:00 04/23/20 08:12 Apixaban 5 Mg Tab PO 5 mg BID ROQUE Administration Atenolol 25 mg 04/23/20 09:00 04/23/20 08:12 Atenolol 25 Mg Tab PO 25 mg DAILY ROQUE Administration Atorvastatin Calcium 80 mg 04/22/20 21:00 04/22/20 21:42 Atorvastatin Calcium 40 Mg Tab PO 80 mg HS ROQUE Administration Chlorthalidone 12.5 mg 04/23/20 09:00 04/23/20 09:27 Chlorthalidone 25 Mg Tab PO 12.5 mg DAILY ROQUE Administration Ezetimibe 10 mg 04/22/20 09:00 04/23/20 08:12 Ezetimibe 10 Mg Tab PO 10 mg DAILY ROQUE Administration Lorazepam 1 mg 04/23/20 02:15 04/23/20 08:11 Lorazepam 2 Mg/Ml Vial SLOW IVP 04/24/20 02:16 1 mg WILLCALL ROQUE Administration Miscellaneous Medication 2 gm 04/22/20 21:00 04/23/20 09:28 Icosapent Ethyl 1 Gm Capsule PO 2 gm BID ROQUE Administration Sertraline HCl 50 mg 04/22/20 21:00 04/22/20 21:43 Sertraline Hcl 100 Mg Tab PO 50 mg HS ROQUE Administration Sodium Chloride 10 ml 04/21/20 03:23 04/22/20 21:42 Flush - Normal Saline 10 Ml Syringe IVF 10 ml PRN PRN Administration Saline Flush Trospium 20 mg 04/22/20 21:00 04/23/20 08:12 Trospium 20 Mg Tab PO 20 mg BID ROQUE Administration Hospitalist Exam Vitals: Vital Signs (12 hours) Temp Pulse Resp BP Pulse Ox 04/23/20 07:09 98.2 F 97 18 121/68 97 04/23/20 05:37 90 04/23/20 03:45 98.6 F 108 H 20 145/76 H 98 04/22/20 23:25 99 F 99 22 H 137/73 95 Weight Weight 158 lb Most Recent Monitor Data Heart Rate from ECG 79 NIBP 101/72 NIBP BP-Mean 81 Respiration from ECG 26 SpO2 96 General Appearance: NAD, awake alert Eye: PERRL, anicteric sclera ENT: normocephalic atraumatic, no oropharyngeal lesions Neck: supple, symmetric, no JVD, no thyromegaly Heart: no murmur, no gallops, no rubs Respiratory: no wheezes, no rales, no ronchi Gastrointestinal: soft, non-tender, non-distended, normal bowel sounds Extremities: no clubbing, no edema Skin: normal turgor, no lesions Neurological: no focal deficits Neurological - other findings: Patient moves all 4 limbs, speech normal Musculoskeletal: normal tone, normal strength Psychiatric: normal affect, normal behavior, A&O x 3 Hosp A/P (1) Acute CVA (cerebrovascular accident) Code(s): I63.9 - CEREBRAL INFARCTION, UNSPECIFIED Status: Acute (2) Atrial fibrillation Code(s): I48.91 - UNSPECIFIED ATRIAL FIBRILLATION Status: Chronic Qualifiers: Atrial fibrillation type: paroxysmal Qualified Code(s): I48.0 - Paroxysmal atrial fibrillation (3) Hypertension Code(s): I10 - ESSENTIAL (PRIMARY) HYPERTENSION Status: Chronic Qualifiers: Hypertension type: essential hypertension Qualified Code(s): I10 - Essential (primary) hypertension (4) Hypokalemia Code(s): E87.6 - HYPOKALEMIA Status: Resolved (5) Transaminitis Code(s): R74.01 - ELEVATION OF LEVELS OF LIVER TRANSAMINASE LEVELS Status: Acute (6) Dyslipidemia Code(s): E78.5 - HYPERLIPIDEMIA, UNSPECIFIED Status: Chronic - Plan old records reviewed/req, PT/OT, social service liaison Hal started, will monitor closely MRI report showing lacunar infarction, continue stroke team evaluation We will monitor on telemetry floor We will consider discharge in next 24 hours if stable, Echocardiography showed anteroseptal hypokinesis, cardiology following
[2020-04-23] MEDS: HYDROcodone/Acetaminophen 5/325 mg Tablet PO PRN ×3 (11:23→20:51)
--- NOTE | 2020-04-23 12:02 | PDOC.NEUPN ---
- Subjective Encounter Date: 04/23/20 Subjective: Mrs. Cortés denies any new complaints in the last 24 hours. MRI brain completed which was positive for acute infarction. - Objective Vital Signs & Weight: Vital Signs (12 hours) Temp Pulse Resp BP Pulse Ox 04/23/20 11:04 97.8 F 91 24 H 127/63 97 04/23/20 07:09 98.2 F 97 18 121/68 97 04/23/20 05:37 90 04/23/20 03:45 98.6 F 108 H 20 145/76 H 98 Weight Weight 158 lb Most Recent Monitor Data Heart Rate from ECG 79 NIBP 101/72 NIBP BP-Mean 81 Respiration from ECG 26 SpO2 96 I&O: 04/22/20 04/23/20 04/24/20 06:59 06:59 06:59 Intake Total 324.2 897 Output Total 1350 1200 Balance -1025.8 -303 Result Diagrams: 04/23/20 04:39 04/23/20 04:39 Radiology Reviewed by me: Yes EKG Reviewed by me: Yes ROS - Review of Systems Constitutional: denies: fever, chills, sweats, weakness, malaise, other Eyes: denies: pain, vision change, conjunctivae inflammation, eyelid inflammation, redness, other ENT: denies: ear pain, ear discharge, nose pain, nose discharge, nose congestion, mouth pain, mouth swelling, throat pain, throat swelling, other Respiratory: denies: cough, dry, shortness of breath, hemoptysis, SOB with excertion, pleuritic pain, sputum, wheezing, other Gastrointestinal: denies: nausea, vomiting, abdominal pain, diarrhea, constipation, melena, hematochezia, other Genitourinary: denies: dysuria, frequency, incontinence, hematuria, retention, other Musculoskeletal: denies: neck pain, shoulder pain, arm pain, back pain, hand pain, leg pain, foot pain, other Skin: denies: rash, lesions, alize, bruising, other All Systems: All other systems reviewed; all pertinent +/- noted in HPI/Subj - Medication Medications: Active Medications Generic Name Dose Route Start Last Admin Trade Name Freq PRN Reason Stop Dose Admin Acetaminophen 650 mg 04/22/20 22:01 04/23/20 10:24 Acetaminophen 325 Mg Tab PO 650 mg Q6H PRN Administration Headache/Fever or Pain Hydrocodone Bitart/Acetaminophen 1 tab 04/23/20 07:41 04/23/20 11:23 Hydrocodone/Acetaminophen 5/325 Mg Tablet PO 1 tab Q4H PRN Administration Moderate Pain (4-6) Apixaban 5 mg 04/22/20 21:00 04/23/20 08:12 Apixaban 5 Mg Tab PO 5 mg BID ROQUE Administration Atenolol 25 mg 04/23/20 09:00 04/23/20 08:12 Atenolol 25 Mg Tab PO 25 mg DAILY ROQUE Administration Atorvastatin Calcium 80 mg 04/22/20 21:00 04/22/20 21:42 Atorvastatin Calcium 40 Mg Tab PO 80 mg HS ROQUE Administration Chlorthalidone 12.5 mg 04/23/20 09:00 04/23/20 09:27 Chlorthalidone 25 Mg Tab PO 12.5 mg DAILY ROQUE Administration Ezetimibe 10 mg 04/22/20 09:00 04/23/20 08:12 Ezetimibe 10 Mg Tab PO 10 mg DAILY ROQUE Administration Lorazepam 1 mg 04/23/20 02:15 04/23/20 08:11 Lorazepam 2 Mg/Ml Vial SLOW IVP 04/24/20 02:16 1 mg WILLCALL ROQUE Administration Miscellaneous Medication 2 gm 04/22/20 21:00 04/23/20 09:28 Icosapent Ethyl 1 Gm Capsule PO 2 gm BID ROQUE Administration Sertraline HCl 50 mg 04/22/20 21:00 04/22/20 21:43 Sertraline Hcl 100 Mg Tab PO 50 mg HS ROQUE Administration Sodium Chloride 10 ml 04/21/20 03:23 04/22/20 21:42 Flush - Normal Saline 10 Ml Syringe IVF 10 ml PRN PRN Administration Saline Flush Trospium 20 mg 04/22/20 21:00 04/23/20 08:12 Trospium 20 Mg Tab PO 20 mg BID ROQUE Administration - Exam General Appearance: awake alert Eye: PERRL ENT: normocephalic atraumatic Neck: supple Respiratory: no wheezes Cardiovascular: no murmur Gastrointestinal: soft Extremities: no cyanosis Skin: normal turgor Neurological: no new deficit Musculoskeletal: normal tone, no muscle wasting PSYCH: normal affect, normal behavior, A&O x 3, oriented to person, oriented to place, oriented to time Results - Labs Result Diagrams: 04/23/20 04:39 04/23/20 04:39 Lab results: WBC 10.4 thou/uL (4.8-10.8) 04/23/20 04:39 Hgb 11.9 g/dL (12.0-16.0) L 04/23/20 04:39 Hct 36.2 % (36.0-47.0) 04/23/20 04:39 MCV 94.5 fL (78.0-98.0) 04/23/20 04:39 Plt Count 173 thou/uL (130-400) 04/23/20 04:39 Neutrophils % 64.3 % (42.0-75.0) 04/23/20 04:39 Sodium 140 mmol/L (136-145) 04/23/20 04:39 Potassium 3.9 mmol/L (3.5-5.1) 04/23/20 04:39 Chloride 109 mmol/L (98-107) H 04/23/20 04:39 Carbon Dioxide 23 mmol/L (23-31) 04/23/20 04:39 BUN 14 mg/dL (9.8-20.1) 04/23/20 04:39 Creatinine 0.74 mg/dL (0.6-1.1) 04/23/20 04:39 Glucose 126 mg/dL (83-110) H 04/23/20 04:39 Calcium 8.8 mg/dL (7.8-10.44) 04/23/20 04:39 Total Bilirubin 0.7 mg/dL (0.2-1.2) 04/23/20 04:39 AST 38 U/L (5-34) H 04/23/20 04:39 ALT 88 U/L (8-55) H 04/23/20 04:39 Alkaline Phosphatase 70 U/L (40-110) 04/23/20 04:39 Serum Total Protein 7.0 g/dL (5.8-8.1) 04/23/20 04:39 Albumin 3.9 g/dL (3.4-4.8) 04/23/20 04:39 - Radiology Interpretation MRI - head Additional Comment: MRI of the brain was consistent with punctate foci of acute lacunar infarction PN A/P (1) Acute CVA (cerebrovascular accident) Code(s): I63.9 - CEREBRAL INFARCTION, UNSPECIFIED Status: Acute (2) Atrial fibrillation Code(s): I48.91 - UNSPECIFIED ATRIAL FIBRILLATION Status: Chronic Qualifiers: Atrial fibrillation type: paroxysmal Qualified Code(s): I48.0 - Paroxysmal atrial fibrillation (3) Hypertension Code(s): I10 - ESSENTIAL (PRIMARY) HYPERTENSION Status: Chronic Qualifiers: Hypertension type: essential hypertension Qualified Code(s): I10 - Es sential (primary) hypertension - Plan Daily Plan: PT/OT, speech therapy, out of bed/ambulate Mr. Cortés is a 74-year-old female who presented with strokelike symptoms and is s/p TPA and mechanical thrombectomy with marked resolution of her neurological deficits. MRI of the brain completed which was positive for acute infarction. Head CT 24 hours post TPA is negative for bleed. CTA of the head showed occlusion of the left middle cerebral and distal internal carotid arteries. Mechanical thrombectomy was performed by Dr. Duong which resulted in normal blood flow 2 D Echo completed. Results noted. EEG reviewed and was negative for seizure activity. Continue aspirin and high intensity statin for secondary stroke prevention. Monitor blood pressure and blood glucose Continue telemetry. Patient has history of atrial fibrillation and cardiology is on board.Need residential anticoagulation. Patient is started on Eliquis. Neurochecks every 4 hours. Continue home medications. Continue medical management per primary team and cardiology. PT/OT/speech Plan discussed in detail with the patient and the nursing staff. No further recommendations from neurology perspective.
[2020-04-23 13:18] LABS: Bacteria/HPF 3+ HPF (None Seen); Bilirubin Negative (Negative); Blood, Urine Negative (Negative); Clarity Turbid (Clear); Glucose, Urine (Dipstick) Normal (Negative); Ketone, Urine Negative (Negative); Leukocyte Negative Leu/uL (Negative); Nitrite Negative (Negative); Protein, Urine (Dipstick) Negative (Neg-Trace); RBC/HPF 0-3 HPF (0-3); Specific Gravity, Urine 1.014 (1.002-1.036); Squamous Epithelial 0-3 HPF (0-3); Urobilinogen Normal mg/dL (Less than 2); pH, Urine 7.5 (5.0-9.0)
[2020-04-23 13:20] LABS: Urine Culture Reflex Yes Yes
[2020-04-23] MEDS: Atorvastatin Calcium 40 MG TAB PO SCH (20:54)
[2020-04-23 22:31] LABS: Lactic Acid 0.9 mmol/L (0.5-2.2)
[2020-04-23 22:35] LABS: ALT (SGPT) 90 U/L (8-55); AST (SGOT) 42 U/L (5-34); Albumin 4.1 g/dL (3.4-4.8); Alkaline Phosphatase 73 U/L (40-110); Anion Gap 12 mmol/L (10-20); BUN (Urea Nitrogen) 15 mg/dL (9.8-20.1); Bilirubin, Direct 0.4 mg/dL (0.1-0.3); Bilirubin, Total 0.8 mg/dL (0.2-1.2); Calc. Creatinine Clearance 75 mL/min (70-130); Calcium 8.9 mg/dL (7.8-10.44); Carbon Dioxide 24 mmol/L (23-31); Chloride 104 mmol/L (98-107); Glucose 138 mg/dL (83-110); Lipase 28 U/L (8-78); Magnesium 1.6 mg/dL (1.6-2.6); Potassium 3.6 mmol/L (3.5-5.1); Protein, Total 7.5 g/dL (5.8-8.1); Sodium 136 mmol/L (136-145)
[2020-04-24] MEDS ORDERED: Morphine 2 MG/ML VIAL SLOW IVP SCH (00:45)
[2020-04-24] MEDS ORDERED: Lidocaine 5% Patch TD SCH (01:00)
[2020-04-24 07:47] VITALS: BP 105/60; TEMP 98.1
[2020-04-24] MEDS: Ezetimibe 10 MG TAB PO SCH (09:17)
[2020-04-24] MEDS: Trospium 20 MG TAB PO SCH (09:17)
[2020-04-24] MEDS: Icosapent Ethyl 1 GM CAPSULE PO SCH (09:17)
[2020-04-24] MEDS: Apixaban 5 MG TAB PO SCH (09:17)
[2020-04-24] MEDS: Chlorthalidone 25 MG TAB PO SCH (09:18)
[2020-04-24] MEDS: Atenolol 25 MG TAB PO SCH (09:18)
[2020-04-24] MEDS: HYDROcodone/Acetaminophen 5/325 mg Tablet PO PRN (09:31)
[2020-04-24] MEDS ORDERED: Cyclobenzaprine 10 MG TAB PO SCH (10:00)
--- NOTE | 2020-04-24 10:05 | PDOC.DS.DS ---
Provider Date of Admission: 04/20/20 23:30 Date of Discharge: 04/24/20 Admitting Provider: Gael Franec MD Consultations: Cardiology, Neurology Primary Care Physician: Unknown Course Hospital Course: Patient is a pleasant 74 years old female who has significant past medical history of atrial fib, hypertension, dyslipidemia, who presented to outside facility ER with acute onset of right hemiplegia and aphasia. Initial CT head was negative for hemorrhage. CTA was concerning for occlusions of the distal ICA and left MCA. Patient was subsequently given TPA, and transferred to our facility for mechanical thrombectomy. Patient was admitted to CCU overnight. Neurology was consulted. Patient underwent successful mechanical thrombectomy with complete mu-ism of blood flow into the left MCA and distal internal carotid artery. Her symptoms completely resolve. Cardiology was also consulted. Patient is on beta-raymond as well as Eliquis, which has been resumed while she is in the hospital. Patient working well with physical therapy. At this time, patient is stable to discharge home. She also treat empirically for urinary tract infection. Patient is eager to go home so she can get her Covid vaccine as scheduled. Her urine culture positive for gram- negative obi, she was given a dose of Rocephin in the hospital prior to discharge. Patient to follow-up with her PCP for final culture report, and adjust antibiotic if needed. She was discharged home with Cipro empirically for 5-day. Lab Results: 04/23/20 04:39 04/23/20 22:07 Abnormal Lab Results - Last 48 hrs 04/23/20 04:39: Chloride 109 H 04/23/20 04:39: RBC 3.84 L, Hgb 11.9 L, MCH 31.2 H, MPV 6.7 L, Neutrophils # 6.7 H, Monocytes # 0.7 H 04/23/20 04:39: AST 38 H, ALT 88 H 04/23/20 12:52: Urine Clarity Turbid A, Urine WBC 4-6 A, Urine Bacteria 3+ A, Urine Culture Reflexed Yes A 04/23/20 22:07: Direct Bilirubin 0.4 H, AST 42 H, ALT 90 H Microbiology - Entire Visit 04/23/20 13:20 Urine clean catch Urine Culture - Preliminary Gram Negative Obi Vitals: Vital Signs (12 hours) Temp Pulse Resp BP BP BP Pulse Ox 04/24/20 09:18 107 H 105/60 04/24/20 07:46 98.1 F 107 H 19 105/60 97 04/24/20 04:00 99.6 F 60 23 H 152/67 H 95 04/24/20 02:55 99.7 F H 110 H 22 H 131/64 95 04/24/20 00:40 128/76 04/23/20 22:57 96 04/23/20 22:44 99.2 F 101 H 22 H 143/77 H 92 L Weight Weight 158 lb Most Recent Monitor Data Heart Rate from ECG 79 NIBP 101/72 NIBP BP-Mean 81 Respiration from ECG 26 SpO2 96 Physical Exam: The patient was seen and examined on the day of discharge. General Appearance: NAD Eye: PERRL ENT: normocephalic atraumatic Neck: supple Respiratory: CTAB Cardiovascular: RRR Gastrointestinal: soft Extremities: no cyanosis Skin: normal turgor Neurological: cranial nerve grossly intact Problem Time Spent in discharge related activities (mins): 35 (1) UTI (urinary tract infection) Status: Acute (2) Acute CVA (cerebrovascular accident) Code(s): I63.9 - CEREBRAL INFARCTION, UNSPECIFIED Status: Acute (3) Atrial fibrillation Code(s): I48.91 - UNSPECIFIED ATRIAL FIBRILLATION Status: Chronic Qualifiers: Atrial fibrillation type: paroxysmal Qualified Code(s): I48.0 - Paroxysmal atrial fibrillation (4) Dyslipidemia Code(s): E78.5 - HYPERLIPIDEMIA, UNSPECIFIED Status: Chronic (5) Hypertension Code(s): I10 - ESSENTIAL (PRIMARY) HYPERTENSION Status: Chronic Qualifiers: Hypertension type: essential hypertension Qualified Code(s): I10 - Essential (primary) hypertension Plan Prescriptions: HYDROcodone Bit/APAP 5/325 [[place] 5/325] 1 tab PO Q6HR PRN #14 tab PRN Reason: Pain Cipro 250 mg PO Q12HR #10 tab Aspirin 81 mg PO DAILY #30 tab.chew Apixaban [Eliquis] 5 mg PO BID #60 tab Cyclobenzaprine [Flexeril] 10 mg PO BID PRN #20 tab PRN Reason: Muscle Spasm Lidocaine 5% Patch [Lidoderm 5% Patch] 1 patch TD DAILY #30 patch Home Medications: Medication Instructions Recorded Confirmed Type Atenolol/Chlorthalidone 1 tab PO DAILY 04/21/20 04/21/20 History [Atenolol-Chlorthalidone 50-25] Atorvastatin Calcium 1 tablet PO HS 04/21/20 04/21/20 History Carbinoxamine Maleate 4 mg PO DAILY 04/21/20 04/21/20 History Icosapent Ethyl [Vascepa] 2 capsule PO BID 04/21/20 04/21/20 History Sertraline HCl 50 mg PO HS 04/21/20 04/21/20 History Tolterodine Tartrate [Tolterodine 1 capsule PO DAILY 04/21/20 04/21/20 History Tartrate ER] Apixaban [Eliquis] 5 mg PO BID #60 tab 04/24/20 Rx Aspirin 81 mg PO DAILY #30 tab.chew 04/24/20 Rx Cipro 250 mg PO Q12HR #10 tab 04/24/20 Rx Cyclobenzaprine [Flexeril] 10 mg PO BID PRN #20 tab 04/24/20 Rx HYDROcodone Bit/APAP 5/325 [[place] 1 tab PO Q6HR PRN #14 tab 04/24/20 Rx 5/325] Lidocaine 5% Patch [Lidoderm 5% 1 patch TD DAILY #30 patch 04/24/20 Rx Patch] Allergies: No Known Allergies Allergy (Verified 04/22/20 14:16) Activity:: Activity as Tolerated Referrals: Wilberto Yanes MD [Active] - 3-4 Weeks Unknown,Unknown [Primary Care Provider] - Disposition: HOME Quality CORE MEASURES:: Stroke/TIA Did you prescribe antithrombotic therapy?: Yes Did you prescribe anticoagulant for A Fib/Flutter?: Yes Did you prescribe a statin medication?: Yes
[2020-04-24] MEDS ORDERED: cefTRIAXone\\ROCEPHIN 1 GM in Sodium Chloride 0.9% 100 ML IVPB SCH (11:00)
[2020-04-24] MEDS ORDERED: Lidocaine Patch Removal 1 EACH TOP SCH (13:00)
--- NOTE | 2020-04-25 06:09 | CON ---
DATE OF CONSULTATION: 04/23/2020 Dictated by Latasha Crabtree, nurse practitioner, as a scribe for Dr. Wero Dominguez. CONSULTING PHYSICIAN: Wero Dominguez MD REASON FOR CONSULTATION: Atrial fibrillation management. [place]IMARY [place] OF [place] JUDGE: Wilberto Yanes MD HISTORY OF PRESENT ILLNESS: I am seeing Ms. Cortés at our [place] stroke unit for an electrophysiology consultation. Her problems are: 1. Recurrent persistent atrial fibrillation. a. Status post PVAI in 09/2018 in [place]. b. Off OAC since 2019. 2. Acute CVA status post tPA and eventual thrombectomy of the internal carotid and middle cerebral arteries. 3. History of peripheral vascular disease. 4. History of hepatitis. 5. Hyperlipidemia. 6. Hypertension. 7. Anxiety and depression. 8. Osteoarthritis. SUBJECTIVE: Ms. Cortés is a 74-year-old woman who came in with acute stroke-like symptoms. TPA was administered with no resolution of symptoms and she was taken to the denture laboratory technician by Dr. Duong, who found an occluded internal carotid and MCA, prompting manual thrombectomy of these vessels. She has had complete neurologic resolution. She remains in AFib with RVR. She has had a history of AFib with prior ablation by an outside group in [place], and has not been on oral anticoagulation for some time. Also, she was recently sick with COVID in February. REVIEW OF SYSTEMS: A 12-point review of systems is currently negative. PAST MEDICAL HISTORY: As above. OUTPATIENT MEDICATIONS: 1. Atenolol and chlorthalidone 50/25 half tablet daily. 2. Carbinoxamine maleate 4 mg daily. 3. Aspirin 81 mg daily. 4. Tolterodine daily. 5. Calcium with vitamin D. 6. Losartan 100 mg daily. 7. Pravastatin 80 mg daily. 8. Sertraline 50 mg nightly. ALLERGIES: PENICILLIN, RESULTING IN RASH. SURGICAL HISTORY: 1. Tubal ligation. 2. Bladder tack. 3. Stenting in bilateral lower extremities. 4. PVAI in 2018. 5. Bilateral cataract surgeries. FAMILY HISTORY: Noncontributory. Negative for sudden cardiac . SOCIAL HISTORY: Positive for social alcohol use. Negative for tobacco or illicit drug use. Recently relocated to the [facility] from [place] in 11/2019. OBJECTIVE: VITAL SIGNS: Temperature 97.8, pulse 91, blood pressure is 127/63, respirations 24, and oxygen 97% on room air. GENERAL: The patient is alert and oriented. Speech is clear. Affect is appropriate. She is in no apparent distress, resting comfortably in bed at time of the exam. HEENT: She is normocephalic and atraumatic. Her sclerae anicteric. EOMs are intact. Oral mucosa is moist and pink with adequate dentition. NECK: Supple without jugular venous distention. There is no lymphadenopathy. Her trachea is midline. LUNGS: Clear to auscultation bilaterally without wheezes, crackles, or rhonchi. HEART: Rate is irregularly irregular, slightly rapid. PMI is nondisplaced. ABDOMEN: Soft and nontender without palpable masses. Hepatojugular reflux is negative. EXTREMITIES: Warm and dry to touch. Well perfused without clubbing or cyanosis. NEUROLOGIC: Grossly intact. Gait was not assessed. LABORATORY DATA: Hematology: Unremarkable. Chemistry: Potassium 3.9, creatinine 0.74, AST 38, ALT 88, and alkaline phosphatase 70. Echocardiogram on 04/21/2020; LVEF 55% to 60%, anterior septal hypokinesis, moderately dilated left atrium measuring 3.75 cm, moderate MR, mild TR, small pericardial effusion without tamponade. Telemetry and EKG show atrial fibrillation initially with RVR, now with improved rate control. IMPRESSION: 1. Acute cerebrovascular accident status post tPA and manual thrombectomy of the left middle cerebral artery and left internal carotid artery. 2. Atrial fibrillation with rapid ventricular response. 3. Hypertension. 4. Peripheral vascular disease. PLAN AND RECOMMENDATIONS: I had a long discussion with Ms. Cortés regarding atrial fibrillation and treatment options including rate control, cardioversion, antiarrhythmic medications, ablation and/or combination of these approaches in the pursuit of sinus rhythm. She will require oral anticoagulation given the recurrence of her arrhythmias and her recent stroke. Her CHADS-VASc score is at least 6 based on female gender, advancing age, prior stroke, hypertension, and vascular disease. For now, we will allow for rate control as she recovers from her recent event. After 30 days of oral anticoagulation, cardioversion or possibly repeat ablation could be pursued. We will see back as an outpatient in 4 weeks or sooner if symptoms dictate. Cardiology will continue to follow for her blood pressure management and agree with her current rate control strategy. Job ID: [id number]
== END 2020-04-24 14:42 | disposition home or self-care (01) | DRG 23 ==
LOC: CCL 21:30 → CCU 23:30 → 2SE 04-22 15:08
PROVIDERS: ADMIT Internal Medicine; ATTEND Family Medicine
PROC: 03CG3ZZ Extirpation of Matter from Intracranial Artery, Percutaneous Approach (ICD-10-PCS; principal; 2020-04-20)
PROC: 03CL3ZZ Extirpation of Matter from Left Internal Carotid Artery, Percutaneous Approach (ICD-10-PCS; 2020-04-20)
DX: I63.512 Cerebral infarction due to unspecified occlusion or stenosis of left middle cerebral artery (principal); I63.232 Cerebral infarction due to unspecified occlusion or stenosis of left carotid arteries; N39.0 Urinary tract infection, site not specified; G81.91 Hemiplegia, unspecified affecting right dominant side; Z20.822 Contact with and (suspected) exposure to COVID-19; R29.700 NIHSS score 0; Z92.82 Status post administration of tPA (rtPA) in a different facility within the last 24 hours prior to admission to current facility; I48.0 Paroxysmal atrial fibrillation; E78.5 Hyperlipidemia, unspecified; I10 Essential (primary) hypertension; R47.01 Aphasia; D64.9 Anemia, unspecified; E87.6 Hypokalemia; F41.9 Anxiety disorder, unspecified; F32.9 Major depressive disorder, single episode, unspecified; M19.90 Unspecified osteoarthritis, unspecified site; I73.9 Peripheral vascular disease, unspecified; Z90.49 Acquired absence of other specified parts of digestive tract; Z86.73 Personal history of transient ischemic attack (TIA), and cerebral infarction without residual deficits; Z95.828 Presence of other vascular implants and grafts; Z79.899 Other long term (current) drug therapy; Z79.82 Long term (current) use of aspirin; Z88.0 Allergy status to penicillin; Z98.51 Tubal ligation status
CPT/HCPCS: 36415; 36596; 70450; 70496; 70551; 74018; 75902; 80048; 80053; 80061; 80076; 81001; 83036; 83605; 83690; 83735; 85025; 85610; 85730; 87077; 87086; 87186; 93005; 93306; 95712; 95819; 95957; 99292; C1887; J0696; J1100; J1160; J1644; J2060; J2250; J2270; J2405; J2704; J2997; J3480; J3490; Q9967; U0002

== ENCOUNTER 2020-06-07 11:02 | Outpatient (CLI) | payer MEDICARE, BC ==
[2020-06-07 14:33] LABS: Hemoglobin 13.6 g/dL (12.0-15.5); Mean Corpuscular HGB CONC 32.6 g/dL (32.0-36.0); Mean Corpuscular Volume 91.9 fl (81.6-98.3); Mean Platelet Volume 9.8 fl (7.4-10.4); Platelet Count 208 10x3/uL (150-450); Red Blood Cell (RBC) Count 4.54 10x6/uL (3.90-5.03); White Blood Cell (WBC) Count 6.5 10x3/uL (3.5-10.5)
[2020-06-07 14:50] LABS: Anion Gap 15 mmol/L (10-20); BUN (Urea Nitrogen) 20 mg/dL (9.8-20.1); Calc. Creatinine Clearance 0 mL/min (70-130); Calcium 9.5 mg/dL (7.8-10.44); Carbon Dioxide 26 mmol/L (23-31); Chloride 104 mmol/L (98-107); Glucose 105 mg/dL (83-110); Potassium 4.1 mmol/L (3.5-5.1); Sodium 141 mmol/L (136-145)
[2020-06-07 15:22] LABS: Prothrombin Time 11.4 sec (9.5-12.1)
[2020-06-08 01:28] LABS: SARS-CoV-2 PCR by NAA Not Detected (NotDetected)
== END 2020-06-07 11:03 | disposition home or self-care (01) ==
LOC: LABBT 11:02
PROVIDERS: ATTEND Internal Medicine Cardiovascular Disease
DX: Z01.818 Encounter for other preprocedural examination (principal); Z20.822 Contact with and (suspected) exposure to COVID-19; I48.91 Unspecified atrial fibrillation
CPT/HCPCS: 80048; 85027; 85610; 85730; 93005; U0003; U0005; 87635; 93010

== ENCOUNTER 2020-06-12 06:03 | Observation (INO) | payer MEDICARE, BC ==
[2020-06-11 09:28] VITALS: BMI 27.1
[2020-06-12] MEDS ORDERED: Heparin 10,000 UNITS/ 10 ML VIAL ONE ×3 (06:47→12:31)
[2020-06-12] MEDS ORDERED: Fentanyl 100 MCG/2 ML VIAL ONE (07:04)
[2020-06-12] MEDS ORDERED: Phenylephrine 10 MG/ML VIAL ONE (07:04)
[2020-06-12] MEDS ORDERED: Ondansetron PF 4 MG/2 ML Vial ONE (07:55)
[2020-06-12] MEDS ORDERED: Dexamethasone 20 MG/5 ML VIAL ONE (07:55)
[2020-06-12] MEDS ORDERED: Glycopyrrolate 0.2 MG/ML 5 ML SYRINGE ONE (07:55)
[2020-06-12] MEDS ORDERED: PROPOFOL 200 MG/20 ML VIAL ONE (07:55)
[2020-06-12] MEDS ORDERED: ePHEDrine Sulfate 50 MG/10 ML VIAL ONE (07:55)
[2020-06-12] MEDS ORDERED: Lidocaine 1% PF 5 ML VIAL ONE (07:55)
[2020-06-12] MEDS ORDERED: Rocuronium Bromide 10 MG/ML (10ML VIAL) ONE (07:55)
[2020-06-12] MEDS ORDERED: PHENYLEPHRINE-NS 100 MCG/ML 10 ML SYRINGE ONE (07:55)
[2020-06-12] MEDS ORDERED: Isoproterenol 0.2 MG/1 ML AMP ONE (09:11)
[2020-06-12] MEDS ORDERED: Heparin 25,000 units/D5W 500 ML ONE (09:11)
[2020-06-12] MEDS ORDERED: Protamine Sulfate 50 MG/5 ML VIAL ONE (13:19)
[2020-06-12] MEDS ORDERED: Ketorolac Tromethamine 30 MG/ML VIAL IVP PRN (14:20)
[2020-06-12] MEDS ORDERED: HYDROcodone/Acetaminophen 5/325 mg Tablet PO PRN ×2 (14:25)
[2020-06-12] MEDS ORDERED: Morphine 2 MG/ML VIAL SLOW IVP PRN (14:26)
[2020-06-12] MEDS ORDERED: Promethazine HCl 25 MG/ML VIAL IM/IV PRN (14:30)
[2020-06-12] MEDS ORDERED: Ondansetron HCl/PF 4 MG/2 ML Vial IVP PRN (14:30)
[2020-06-12] MEDS ORDERED: Acetaminophen/Codeine 30-300mg Tablet PO PRN ×2 (14:30)
[2020-06-12] MEDS ORDERED: Acetaminophen/Codeine 30-300mg Tablet ONE (15:35)
[2020-06-12] MEDS ORDERED: Sucralfate 1 GM TAB PO SCH (18:00)
[2020-06-12] MEDS: Sucralfate 1 GM TAB PO SCH ×2 (18:31→23:40)
[2020-06-12] MEDS ORDERED: Atorvastatin Calcium 40 MG TAB PO SCH (21:00)
[2020-06-12] MEDS ORDERED: Losartan 25 MG TAB PO SCH (21:00)
[2020-06-12] MEDS: Flecainide 50 MG TAB PO SCH (21:34)
[2020-06-12] MEDS: Icosapent Ethyl 1 GM CAPSULE PO SCH (21:34)
[2020-06-12] MEDS: Trospium 20 MG TAB PO SCH (21:35)
[2020-06-13] MEDS: Sucralfate 1 GM TAB PO SCH (05:33)
[2020-06-13 08:03] VITALS: BP 140/63; TEMP 98.6
[2020-06-13] MEDS ORDERED: Aspirin Chewable 81 MG TAB PO SCH (09:00)
[2020-06-13] MEDS ORDERED: Apixaban 5 MG TAB PO SCH (09:00)
[2020-06-13] MEDS ORDERED: CARBINOXAMINE PO SCH (09:00)
[2020-06-13] MEDS: Flecainide 50 MG TAB PO SCH (09:07)
[2020-06-13] MEDS: Trospium 20 MG TAB PO SCH (09:07)
[2020-06-13] MEDS: Icosapent Ethyl 1 GM CAPSULE PO SCH (10:22)
== END 2020-06-13 11:40 | disposition home or self-care (01) ==
LOC: CCL 06:03 → 2SW 10:00
PROVIDERS: ADMIT Internal Medicine Cardiovascular Disease; ATTEND Internal Medicine Cardiovascular Disease
PROC: 02583ZZ Destruction of Conduction Mechanism, Percutaneous Approach (ICD-10-PCS; principal; 2020-06-12)
PROC: 02K83ZZ Map Conduction Mechanism, Percutaneous Approach (ICD-10-PCS; 2020-06-12)
PROC: 4A023FZ Measurement of Cardiac Rhythm, Percutaneous Approach (ICD-10-PCS; 2020-06-12)
PROC: 4A0234Z Measurement of Cardiac Electrical Activity, Percutaneous Approach (ICD-10-PCS; 2020-06-12)
PROC: B24BZZ4 Ultrasonography of Heart with Aorta, Transesophageal (ICD-10-PCS; 2020-06-12)
DX: I48.19 Other persistent atrial fibrillation (principal); I48.3 Typical atrial flutter; I34.0 Nonrheumatic mitral (valve) insufficiency; Z86.73 Personal history of transient ischemic attack (TIA), and cerebral infarction without residual deficits; Z79.01 Long term (current) use of anticoagulants; Z79.82 Long term (current) use of aspirin; Z79.899 Other long term (current) drug therapy; Z88.0 Allergy status to penicillin
CPT/HCPCS: 76942; 85347 ×2; 92960; 93005 ×2; 93312; 93613; 93622; 93623; 93655; 93656; 93657; 93662; C1732 ×2; C1759; C1884; 93010; 96374; G0378; J1100; J1644; J1885; J2370; J2405; J2704; J2720; J3010

== ENCOUNTER 2021-12-11 12:04 | Outpatient (CLI) | payer MEDICARE, BC | END 2021-12-11 12:05 | disposition home or self-care (01) | LOC: SCSRAD 12:04 | PROVIDERS: ATTEND Family Medicine Sports Medicine | DX: R05.2 Subacute cough (principal) | CPT/HCPCS: 71046 ==

== ENCOUNTER 2022-07-06 11:58 | Outpatient (CLI) | payer MEDICARE, BC ==
[~2022-07-06 11:58] MED LIST changes: -Dexamethasone 20 MG/5 ML VIAL ONE; -Glycopyrrolate 0.2 MG/ML 5 ML SYRINGE ONE; -Heparin 10,000 UNITS/ 10 ML VIAL ONE; -Ondansetron PF 4 MG/2 ML Vial ONE; -PHENYLEPHRINE-NS 100 MCG/ML 10 ML SYRINGE ONE; -PROPOFOL 200 MG/20 ML VIAL ONE; -Rocuronium Bromide 10 MG/ML (10ML VIAL) ONE; -Succinylcholine 200 MG/10 ml SYRINGE FS ONE
== END 2022-07-06 11:59 | disposition home or self-care (01) ==
LOC: BICCT 11:58
PROVIDERS: ATTEND Thoracic Surgery (Cardiothoracic Vascular Surgery)
DX: I73.9 Peripheral vascular disease, unspecified (principal); I70.90 Unspecified atherosclerosis
CPT/HCPCS: 75635; 82565; Q9967

== ENCOUNTER 2025-02-05 09:19 | Outpatient (CLI) | payer MEDICARE, BC ==
[2025-02-05 10:44] LABS: #Basophils 0.03 10x3/uL (0.0-0.2); #Eosinophils 0.26 10x3/uL (0.0-0.7); #Monocytes 0.56 10x3/uL (0.11-0.59); #Neutrophils 4.55 10x3/uL (1.40-6.50); %Basophils 0.4 % (0.0-1.0); %Eosinophils 3.1 % (0.0-10.0); %Lymphocytes 34.4 % (21.0-51.0); %Monocytes 6.8 % (0.0-10.0); %Neutrophils 55.1 % (42.0-75.0); Hematocrit 38.9 % (36.0-47.0); Hemoglobin 12.5 g/dL (12.0-16.0); Mean Corpuscular Hemoglobin 29.5 pg (27.0-31.0); Mean Corpuscular Volume 91.7 fL (78.0-98.0); Platelet Count 217 10x3/uL (130-400); Red Blood Cell (RBC) Count 4.24 mill/uL (4.20-5.40); White Blood Cell (WBC) Count 8.26 10x3/uL (4.8-10.8)
[2025-02-05 11:02] LABS: INR-International Normal Ratio 1.4; Prothrombin Time 17.5 sec (12.0-14.7)
[2025-02-05 11:03] LABS: PTT 30.8 sec (22.9-36.1)
[2025-02-05 11:12] LABS: ALT (SGPT) 22 U/L (Less than 34); AST (SGOT) 27 U/L (11-34); Albumin 4.3 g/dL (3.1-4.5); Alkaline Phosphatase 64 U/L (40-110); Anion Gap 10 mmol/L (10-20); BUN (Urea Nitrogen) 17 mg/dL (9.8-20.1); Bilirubin, Total 0.5 mg/dL (0.3-1.2); Calc. Creatinine Clearance 0 mL/min (70-130); Calcium 9.6 mg/dL (7.8-10.44); Carbon Dioxide 25 mmol/L (23-31); Chloride 108 mmol/L (98-107); Globulin 3.2 g/dL (2.4-3.5); Glucose 97 mg/dL (83-110); Potassium 4.4 mmol/L (3.5-5.1); Sodium 139 mmol/L (136-145)
== END 2025-02-05 09:20 | disposition home or self-care (01) ==
LOC: LABBT 09:19
PROVIDERS: ATTEND Internal Medicine Cardiovascular Disease
DX: Z01.818 Encounter for other preprocedural examination (principal); I48.19 Other persistent atrial fibrillation; Z91.81 History of falling
CPT/HCPCS: 80053; 85025; 85610; 85730

== ENCOUNTER 2025-02-05 09:30 | Inpatient (IN) | payer MEDICARE, BC ==
[2025-02-05 09:46] VITALS: BMI 26.9
[2025-02-07] MEDS ORDERED: Heparin 10,000 UNITS/ 10 ML VIAL ONE (06:51)
[2025-02-07] MEDS ORDERED: Lidocaine 2% PF 100 mg/5 ml Syringe ONE (07:06)
[2025-02-07] MEDS ORDERED: SUGAMMADEX SODIUM 200 MG/2 ML VIAL ONE (07:07)
[2025-02-07] MEDS ORDERED: fentaNYL PF 100 MCG/2 ML SYRINGE ONE (07:07)
[2025-02-07] MEDS ORDERED: Vancomycin 1 GM/200 ML (FROZEN) BAG ONE (07:59)
[2025-02-07] MEDS ORDERED: Rocuronium Bromide 10 MG/ML (10ML VIAL) ONE (08:01)
[2025-02-07] MEDS ORDERED: Ondansetron PF 4 MG/2 ML Vial ONE (08:01)
[2025-02-07] MEDS ORDERED: PROPOFOL 200 MG/20 ML VIAL ONE (08:01)
[2025-02-07] MEDS ORDERED: Lidocaine 1% (PF) 30 ML VIAL ONE (08:50)
[2025-02-07] MEDS ORDERED: Lidocaine 1% w/Epinephrine 1:100K 20 ML VIAL ONE (08:51)
[2025-02-07] MEDS ORDERED: Iopamidol 370 76% 100 ML VIAL ONE (09:40)
== END 2025-02-07 13:50 | disposition home or self-care (01) | DRG 274 ==
LOC: SURG A 02-07 05:57 → EDSTATUS 02-07 09:30
PROVIDERS: ADMIT Internal Medicine Cardiovascular Disease; ATTEND Internal Medicine Cardiovascular Disease
PROC: 02L73DK Occlusion of Left Atrial Appendage with Intraluminal Device, Percutaneous Approach (ICD-10-PCS; principal; 2025-02-07)
DX: I48.19 Other persistent atrial fibrillation (principal); Z00.6 Encounter for examination for normal comparison and control in clinical research program; B15.9 Hepatitis A without hepatic coma; I10 Essential (primary) hypertension; E78.5 Hyperlipidemia, unspecified; I25.10 Atherosclerotic heart disease of native coronary artery without angina pectoris; I44.0 Atrioventricular block, first degree; I34.0 Nonrheumatic mitral (valve) insufficiency; I36.1 Nonrheumatic tricuspid (valve) insufficiency; I73.9 Peripheral vascular disease, unspecified; M19.90 Unspecified osteoarthritis, unspecified site; F10.90 Alcohol use, unspecified, uncomplicated; F32.A Depression, unspecified; F41.9 Anxiety disorder, unspecified; Z95.818 Presence of other cardiac implants and grafts; Z90.49 Acquired absence of other specified parts of digestive tract; Z98.890 Other specified postprocedural states; Z86.73 Personal history of transient ischemic attack (TIA), and cerebral infarction without residual deficits; Z79.899 Other long term (current) drug therapy; Z79.02 Long term (current) use of antithrombotics/antiplatelets; Z79.51 Long term (current) use of inhaled steroids; Z79.82 Long term (current) use of aspirin; Z01.818 Encounter for other preprocedural examination; Z91.81 History of falling
CPT/HCPCS: 33340; 80053; 85025; 85347; 85610; 85730; 86850; 86900; 86901; 93005; 93010; 93312; C1759; C1760; C1769; C1889; C1893; C1894; J0169; J1100; J1644; J2003; J2405; J2704; J2720; J3010; J3373; Q9967